=== PATIENT | male | born 1945 | race Caucasian/White ===

== ENCOUNTER 2019-05-29 00:59 | Day surgery (SDC) | payer MEDICARE, SELFPAY ==
[2019-05-26 10:53] VITALS: BMI 30.4
--- NOTE | 2019-05-28 17:06 | WPDANESEPP ---
Anes - Eval Pre Procedure Procedure: Operation Date: 05/29/19 07:30 Proposed Procedures p Screening Colonoscopy - Jose Rhodes MD Date/Time: 05/28/19 17:06 Pre Op Diagnosis: hx colon polyps Patient Data Age: 73 Gender: M Height: 6 ft 1 in Weight: 104.5 kg Allergies Allergy/AdvReac Type Severity Reaction Status Date / Time No Known Allergies Allergy Unknown Verified 05/26/19 10:31 Home Medications Medication Instructions Recorded Confirmed Type multivitamin 1 tablet PO DAILY 04/03/19 05/26/19 History pramipexole 0.25 mg tablet 0.5 mg PO .hs tablet 04/03/19 05/26/19 History trazodone 50 mg tablet 50 mg PO .hs tablet 04/03/19 05/26/19 History omeprazole 40 mg capsule,delayed 40 mg PO DAILY #90 cap 04/29/19 05/26/19 Rx release citalopram 20 mg PO DAILY 05/26/19 05/26/19 History naproxen sodium [Aleve] 220 mg PO DAILY 05/26/19 05/26/19 History Patient hx anesthesia problems: none Family hx anesthesia problems: none PMFSH Past Medical History Medical History Arthritis BCC (basal cell carcinoma of skin) Colon polyps GERD (gastroesophageal reflux disease) Obesity Trigger finger Surgical History Surgical History H/O inguinal hernia repair H/O toe surgery History of tonsillectomy Family History Family History Sibling Patient's brother is in good health Father Cerebrovascular accident, Onset Age: 77 Patient's father is Mother Patient's mother is Other Diabetes mellitus Family history of arthritis Social History Social History Smoking status: Former smoker Second hand tobacco smoke exposure: No Alcohol intake: current Exam Day of Procedure 05/28/19 17:06
[2019-05-29 06:37] VITALS: BP 132/78; PULSE 76; RESP 14; TEMP 36.5; O2SAT 97
[2019-05-29] MEDS: LACTATED RINGERS 1,000 ML 150 ML IV CONT (06:47)
--- NOTE | 2019-05-29 07:05 | P.PNAN_ITS ---
Anes - Eval Final PreProcedure Day of Procedure 05/29/19 07:05 Patient weight: obese Heart: regular rate and rhythm Lungs: clear to auscultation Airway: Mallampati scale class 1 Neurological: alert and oriented Last oral intake: >/= 8 hours ASA classification: II Emergent: no Anesthetic plan: proceed Anesthesia type and monitoring: general GIVS and standard monitoring Informed Consent: The patient's anesthetic plan and its attendant risks and maryann efits were discussed with the patient/family/POA. Questions were solicited and answers provided to the satisfaction of the patient/family/POA.
--- NOTE | 2019-05-29 07:37 | WPDGICN ---
Assessment and Plan Additional Plan This is a 73-year-old white male patient seen in evaluation at the request of AGA Gleason. Patient presents for screening colonoscopy. Patient's current weight appetite bowel movements are normal. He denies abdominal pain. He denies any blood in his bowel movements. Past medical history is significant for colon polyps. Last colonoscopy was 5 years ago. History of basal cell cancer. Family history is noncontributory. Medications at home include omeprazole. Meloxicam. Trazodone. He has no stated drug allergies. Physical exam reveals patient to be alert. Oriented x3. HEENT exam unremarkable. Lungs are clear to auscultation and percussion. Heart is without murmur or extra sounds. Digital external rectal exam is normal. Impression 1. Personal history of colon polyps. Plan is for surveillance colonoscopy. GI Consult Note Consult date/time: 05/29/19 07:37 HPI: Frank Aguilar is a 73 year old male [facility] Past Medical History Medical History Arthritis BCC (basal cell carcinoma of skin) Colon polyps GERD (gastroesophageal reflux disease) Obesity Trigger finger Surgical History Surgical History H/O inguinal hernia repair H/O toe surgery History of tonsillectomy Family History Family History Sibling Patient's brother is in good health Father Cerebrovascular accident, Onset Age: 77 Patient's father is Mother Patient's mother is Other Diabetes mellitus Family history of arthritis Social History Social History Smoking status: Former smoker Second hand tobacco smoke exposure: No Alcohol intake: current Meds Home Medications and Allergies Home Medications Medication Instructions Recorded Confirmed Type multivitamin 1 tablet PO DAILY 04/03/19 05/26/19 History pramipexole 0.25 mg tablet 0.5 mg PO .hs tablet 04/03/19 05/26/19 History trazodone 50 mg tablet 50 mg PO .hs tablet 04/03/19 05/26/19 History omeprazole 40 mg capsule,delayed 40 mg PO DAILY #90 cap 04/29/19 05/26/19 Rx release citalopram 20 mg PO DAILY 05/26/19 05/26/19 History naproxen sodium [Aleve] 220 mg PO DAILY 05/26/19 05/26/19 History Allergies Allergy/AdvReac Type Severity Reaction Status Date / Time No Known Allergies Allergy Unknown Verified 05/29/19 06:36 Vital Signs Vital Signs - 24 hr 05/29/19 06:37 Temperature 36.5 C Pulse Rate 76 Respiratory Rate 14 Blood Pressure 132/78 Pulse Oximetry 97
[2019-05-29 08:02] VITALS: BP 111/59; PULSE 64; RESP 17; O2SAT 96
[2019-05-29 08:12] VITALS: BP 120/62; PULSE 68; RESP 17; O2SAT 98
[2019-05-29 08:22] VITALS: BP 129/62; PULSE 62; RESP 15; O2SAT 99
== END 2019-05-29 08:37 | disposition home or self-care (01) ==
PROVIDERS: PCP Internal Medicine; Visit Provider Internal Medicine Gastroenterology
PROC: 0DJD8ZZ Inspection of Lower Intestinal Tract, Via Natural or Artificial Opening Endoscopic (ICD-10-PCS; CPT 45378; principal; 2019-05-29 07:30)
DX: Z12.11 Encounter for screening for malignant neoplasm of colon (principal); Z86.010 Personal history of colon polyps; K21.9 Gastro-esophageal reflux disease without esophagitis; Z87.891 Personal history of nicotine dependence
CPT/HCPCS: G0105; J2001; J2704; J7120

== ENCOUNTER 2020-03-05 06:56 | Outpatient (NON) | payer MEDICARE, SELFPAY ==
[2020-03-06 13:19] LABS: SARS-CoV-2 RNA PCR Negative
== END 2020-03-05 06:57 ==
LOC: ANHCOVIDDT 06:56
PROVIDERS: PCP Physician Assistant; Visit Provider Physician Assistant
DX: Z20.828 Contact with and (suspected) exposure to other viral communicable diseases (principal)
CPT/HCPCS: 87635; C9803; U0003

== ENCOUNTER → 2021-10-04 00:19 | Outpatient (CLI) | payer BC, SELFPAY ==
[2021-10-04 16:55] LABS: SARS-CoV-2 RNA PCR Positive
== END ==
PROVIDERS: PCP Internal Medicine; Visit Provider Internal Medicine
DX: U07.1 COVID-19 (principal)
CPT/HCPCS: C9803; U0003; U0005

== ENCOUNTER → 2022-05-12 12:37 | Outpatient (CLI) | payer MEDICARE, SELFPAY ==
--- NOTE | ~2022-05-12 | CT_ITS ---
EXAMINATION: CT soft tissue neck wo/w DATE: 05/12/2022 13:06 INDICATION: Dysphagia. Sore throat. TECHNIQUE: Computed tomography (CT) of the neck was performed without and with 75 mL Omnipaque-350 in travenous contrast. Automated exposure control and iterative reconstruction technique were employed. The dose-length product was 830.24 mGy-cm. COMPARISON: None FINDINGS: There are no pathologically enlarged lymph nodes. There is mild plaque in the proximal inte rnal carotid arteries with 0% stenosis relative to normal distal artery lumen diameters. There is ant eroposterior elongation of the ocular globes. There are likely changes of ocular lens replacement rosalia geries. There is mucosal thickening in the paranasal sinuses. The pharynx and larynx are normal. Ther e is severe cervical spondylosis. IMPRESSION: 1. No specific etiology for the patient's symptoms. Reviewed, dictated and finalized at location A. DIRECTOR
[2022-05-12 12:54] LABS: Estimated Glomerular Filt Rate > 60
== END ==
PROVIDERS: PCP Physician Assistant; Visit Provider Otolaryngology
DX: R13.10 Dysphagia, unspecified (principal)
CPT/HCPCS: 70492; 71270; Q9967

== ENCOUNTER 2022-05-16 08:11 | Outpatient (CLI) | payer MEDICARE, SELFPAY ==
--- NOTE | ~2022-05-16 | NM_ITS ---
EXAMINATION: NM nick stress w perfusion DATE: 05/16/2022 10:14 INDICATION: Chest pain TECHNIQUE: Rest images were obtained following intravenous administration of 10.4 mCi Tc99m tetrofosm in (Myoview). The patient was infused intravenously with Lexiscan (Regadenoson). Then, 33.9 mCi Tc99m tetrofosmin (Myoview) was administered intravenously, and stress images were obtained. Data was natasha nstructed into short axis and horizontal and vertical long axis SPECT images. Gated SPECT images were also obtained. COMPARISON: None. FINDINGS: There is no definite reversible or fixed perfusion abnormality to suggest ischemia or infar ction. There is normal left ventricular chamber size, wall motion and ejection fraction. Left ventr icular ejection fraction measures >70%. IMPRESSION: 1. Normal myocardial perfusion at rest and during stress. 2. Left ventricular ejection fraction measuring >70%. Reviewed, dictated and finalized at location L. UTER METHODS ANALYST
--- NOTE | 2022-05-16 08:13 | EST_ITS ---
Patient Info Name: Frank Aguilar Age: 76 years : 1945 Gender: Male Ht: 73 in Wt: 225 lbs BSA: 2.31 m2 Exam Date: 05/16/2022 9:11 AM Exam Location: [facility] Stress Patient Status: Outpatient Admit Date: 05/16/2022 Staff Ordering Physician: Fredy Gleason PA-C Attending Provider: Fredy Gleason PA-C Exercise Technologist: Bel Loyola RDCS Exercise Physician: Nilo Presley DO Exam Type: CA stress nick w NM Study Info Indications R07.9 - Chest pain, unspecified A regadenoson stress test was performed. Summary 1. 1. Negative lexiscan stress test for ischemic ST changes by ECG criteria. 2. 2. Baseline hypertension. 3. 3. Nuclear scan to follow and will be reported separately. Please correlate with it. 4. 4. Patient informed of the above results. Protocol: Lexiscan Stress ECG Details Stage: REST Duration (min): 2 min : 33 sec HR (bpm): 61 SBP (mmHg): 181 DBP (mmHg): 99 Stage: REST Duration (min): 15 min : 13 sec HR (bpm): 69 SBP (mmHg): 181 DBP (mmHg): 99 Stage: STAGE 1 Duration (min): 0 min : 59 sec HR (bpm): 72 SBP (mmHg): 171 DBP (mmHg): 72 Stage: RECOVERY Duration (min): 1 min : 0 sec HR (bpm): 87 SBP (mmHg): 171 DBP (mmHg): 72 Stage: RECOVERY Duration (min): 2 min : 0 sec HR (bpm): 85 SBP (mmHg): 171 DBP (mmHg): 72 Stage: RECOVERY Duration (min): 3 min : 0 sec HR (bpm): 80 SBP (mmHg): 171 DBP (mmHg): 72 Stage: RECOVERY Duration (min): 3 min : 12 sec HR (bpm): 75 SBP (mmHg): 171 DBP (mmHg): 72 Rest HR: 69 bpm Peak HR: 89 bpm Rest Sys BP: 181 mmHg Peak Sys BP: 171 mmHg Max Pred HR: 146 bpm % Max Pred HR: 61 % Target HR: 124 bpm Max RPP: 15,219 bpm*mmHg Termination Reason: Completed protocol Cardiac Symptoms: Shortness of breath Total Time: 1 min : 0 sec Rest Sunshine BP: 99 mmHg Peak Sunshine BP: 72 mmHg Total Dose: 0.4 mg Resting ECG Sinus rhythm with first degree AV block. Stress ECG No ST changes. Arrhythmias None. Report Signatures
== END 2022-05-16 08:12 | disposition home or self-care (01) ==
PROVIDERS: PCP Physician Assistant; Visit Provider Physician Assistant
DX: R07.9 Chest pain, unspecified (principal); I10 Essential (primary) hypertension
CPT/HCPCS: 78452; 93017; A9502; J2785

== ENCOUNTER 2025-02-11 07:50 | Outpatient (CLI) | payer MEDICARE, SELFPAY ==
--- NOTE | ~2025-02-11 | XR_ITS ---
EXAMINATION: XR pelvis 1-2V, 02/11/2025 8:55 CDT HISTORY: W19.XXXA - Unspecified fall, initial encounter COMPARISON: No comparisons available. Findings: No acute fracture or malalignment. Moderate degenerative changes Soft tissues unremarkable. Impression: No acute fracture or malalignment. Reviewed, dictated and finalized at location P. Impression: No acute fracture or malalignment.
--- NOTE | ~2025-02-11 | XR_ITS ---
EXAMINATION: XR knee LT 3V, 02/11/2025 8:55 CDT HISTORY: M25.569 - Pain in unspecified knee COMPARISON: No comparisons available. Findings: No acute fracture or malalignment. 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 Impression: No acute fracture or malalignment. Reviewed, dictated and finalized at location P. Impression: No acute fracture or malalignment.
--- NOTE | ~2025-02-11 | XR_ITS ---
EXAMINATION: XR knee RT 3V, 02/11/2025 8:55 CDT HISTORY: M25.569 - Pain in unspecified knee FALL SEVERAL FT TO GROUND COMPARISON: No comparisons available. Findings: No acute fracture or malalignment. 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 Impression: No acute fracture or malalignment. Reviewed, dictated and finalized at location P. Impression: No acute fracture or malalignment.
--- OUTSIDE RECORDS SUMMARY | 2025-02-11 07:57 | XMS_ITS | Clinical Summary ---
Author Organization [facility] [employer] Address [address] [place] [address] Care Team Providers Care Ecotherapist Name Role Phone Fredy Gleason PA-C Primary Care Provide r Source Comments [facility] [employer],non-owned Affiliates and Associated Physician Practices is amultiple site organization consisting of ambulatory clinics and hospital sitesin [place], [place], [place] and [place]. This disclosure is being madepursuant to the Care Everywhere program and may not contain all information available regarding this patient. Last updated 18.[facility] [employer] Allergies Active Allergy Reactions Criticality Noted Date Comments Seasonal Other Low 09/07/2016 Nose running Medications * Be aware that medications may not be up to date on this document. Alwaysverify current medications with the patient. omeprazole (PRILOSEC) 40 MG capsule Take 1 (one) capsule by mouth daily before breakfast 1 7 Active citalopram (CELEXA) 20 MG tablet Take 0.5 (one-half) tablet by mouth at bedtime 2 7 Active fluticasone propionate (FLONASE) 50 MCG/ACT nasal spray [place] 1 (one) spray into each nostril once daily 6 7 Active pramipexole (MIRAPEX) 0.25 MG tablet Take 1 (one) tablet by mouth once daily 5 Active traZODone (DESYREL) 50 MG tablet Take 1 (one) tablet by mouth Active Multiple Vitamin (MULTI VITAMIN PO) Take 1 tablet by mouth once daily Active Naproxen Sodium (ALEVE PO) Take 1 tablet by mouth once daily Active tamsulosin (Flomax) 0.4 MG capsule Take 1 (one) capsule by mouth at bedtime 2 Active omeprazole (PriLOSEC) 20 MG capsule TAKE 1 CAPSULE BY MOUTH EVERY DAY AT BEDTIME FOR 90 DAYS 3 Active fluorouracil (Efudex) 5 % creamIndication s:Actinic keratosis Apply to affected area twice daily for two weeks. 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 /) from Last 3 Months Immunizations Immunization Administration Dates Next Due INFLUENZA VACCINE 03/08/2021,01/15/2017 INFLUENZA VACCINE, HIGH-DOSE , QUADR. (FLUZONE HIGH-DOSE QUADRIVALENT; 65Y+), 0.7 ML (HD-IIV4) 05/02/2020 PNEUMOCOCCAL PPSV23 05/02/2020 Family History Medical History Relation Name Comments None Known Brother None Known Father None Known Maternal Aunt None Known Maternal Grandfather None Known Maternal Grandmother None Known Maternal Uncle None Known Mother None Known Other None Known Paternal Aunt None Known Paternal Grandfather None Known Paternal Grandmother None Known Paternal Uncle None Known Sister Allergy (Severe) Neg Hx Asthma Neg Hx CVA Neg Hx Cancer Neg Hx Cancer - Breast Neg Hx Cancer - Other Neg Hx Cancer - Skin, Melanoma Neg Hx Cancer - Skin, Non Melanoma Neg Hx Eczema Neg Hx Hemophilia Neg Hx Psoriasis Neg Hx Rashes/Skin Problems Neg Hx Relation Name Status Comments Brother Father Maternal Aunt Maternal Grandfather Maternal Grandmother Maternal Uncle Mother Other Paternal Aunt Paternal Grandfather Paternal Grandmother Paternal Uncle Sister Social History Tobacco Use Types Packs/Day Years Used Date Smoking Tobacco: Former Cigarettes Q uit: 09/07/1968 Smokeless Tobacco: Never Tobacco Cessation:Counseling Given: Not Answered Alcohol Use Standard Drinks/Week Comments Yes 0 (1 standard drink = 0.6 oz pur e alcohol) Sex and Gender Information Value Date Recorded Sex Assigned at Not on file Legal Sex Male 5:32 PM TRIM OPERATOR Gender Identity Not on file Sexual Orientation Not on file Last Filed Vital Signs Vital Sign Reading Time Taken Comments Blood Pressure 152/88 12/03/2020 12:34 PM CDT Pulse 77 12/03/2020 9:31 AM CDT Temperature - - Respiratory Rate - - Oxygen Saturation 97% 11/28/2016 9:08 AM CDT Inhaled Oxygen Concentration - - Weight 97.5 kg (215 lb) 12/03/2020 9:31 AM CDT Height 185.4 cm (6' 1) 12/03/2020 9:31 AM CDT Body Mass Index 28.37 12/03/2020 9:31 AM CDT Plan of Treatment Upcoming Encounters Date Type Department Care Team (Late st Contact Info) Description 02/23/2025 9:10 AM TRIM OPERATOR Office Visit [facility] - Dermatology [address] [place] [address], [place] [id number] Lily Phillips MD [address] [place] [address] [address] [place] [address] Health Maintenance Due Date Last Done Comments HEPATITIS C SCREENING 08/20/1965 DTAP/TDAP/TD VACCINES (1 - Tdap) 08/24/1966 ZOSTER VACCINE (1 of 2) 08/24/1997 PNEUMOCOCCAL VACCINE 50+ (2 of 2 - PCV) 05/02/2021 05/02/2020 Respiratory Syncytial Virus (RSV) Vaccine Pt: or over 60 yrs (1 - 1-dose 75+ series) 08/24/2022 DEPRESSION SCREENING 04/23/2024 MEDICARE AWV CALENDAR YEAR 2024 COVID-19 VACCINE (1 - 2023-2 5 season) 2024 INFLUENZA VACCINE (#1) 2024 1, 05/02/2020, 01/15/2017 HEPATITIS B VACCINE Aged Out No longe r eligible based on patient's age to complete this topic HIB VACCINE Aged Out No longer eligi ble based on patient's age to complete this topic HPV VACCINE Aged Out No longer eligi ble based on patient's age to complete this topic MENINGOCOCCAL (Group B) VACCINE SHARED DECISION-MAKING Aged Out No longer eligible based on patient's age to complete this topic MENINGOCOCCAL GROUPS A/C/Y/W VACCINE Aged Out No longer eligible b ased on patient's age to complete [place] [address] [place] [address] AMANDA Care Teams Ecotherapist Relationship Specialty Start Date End Date Fredy Gleason PA-C [address] [place] [address] [facility] - General 07/22/18
--- OUTSIDE RECORDS SUMMARY | 2025-02-11 07:57 | XMS_ITS | Encounter Summary ---
Author Organization [facility] Address [address] [place] [address] Care Team Providers Care Sales Solutions Representative Name Role Phone Fredy Gleason PA-C Primary Care Provide r Reason for Visit * Reason Onset Date Comments Treatment 01/26/2025 Seeking a Nurse call to discuss a Lump on neck. Encounter Details Date Type Department Care Team (Late st Contact Info) Description 01/26/2025 Telephone [facility] - Dermatology [address] [place] [address], [facility] [place] [address] Lily Phillips MD [address] [place] [address] [place] [address] Treatment (Seeking a Nurse call to discuss a Lump on neck. 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 If the lesion grows fast, let us know and we will do a spot check only appointment. Thank you. Lily Phillips MD * Telephone Encounter - Eugene Delarosa - 01/26/2025 11:25 AM CDT Called pt he stated that he has a small lesion on his neck that's raised as a sized of a dime and that is white. Painful when shirt rubs against it * Telephone Encounter - Dale Barron - 01/26/2025 10:23 AM CDT Seeking a Nurse call to discuss a Lump on neck. documented in this encounter Plan of Treatment Upcoming Encounters Date Type Department Care Team (Late st Contact Info) Description 02/23/2025 9:10 AM SCARFER Office Visit [facility] - Dermatology [address] [place] [address], [place] [address] Lily Phillips MD [address] [place] [address] [address] [place] [address] documented as of this encounter Visit Diagnoses Not on filedocumented in this encounter Care Teams Sales Solutions Representative Relationship Specialty Start Date End Date Fredy Gleason PA-C [address] [place] [address] PCP - General 07/22/18 documented as of this encounter
--- OUTSIDE RECORDS SUMMARY | 2025-02-11 07:57 | XMS_ITS | Encounter Summary ---
Author Organization [facility] Address [address] [place] [address] Care Team Providers Care Pot Filler Name Role Phone Fredy Gleason PA-C Primary Care Provide r Reason for Visit * Reason Onset Date Comments Appointment 10/09/2022 Encounter Details Date Type Department Care Team (Late st Contact Info) Description 10/09/2022 Telephone [facility] - Centralized Scheduling [address] [place] [address] Corie Demarco Appointment Social History Tobacco Use Types Packs/Day Years Used Date Smoking Tobacco: Former Cigarettes Q uit: 09/07/1968 Smokeless Tobacco: Never Alcohol Use Standard Drinks/Week Comments Yes 0 (1 standard drink = 0.6 oz pur e alcohol) Sex and Gender Information Value Date Recorded Sex Assigned at Not on file Legal Sex Male 5:32 PM SURG TECH Gender Identity Not on file Sexual Orientation Not on file COVID-19 Exposure Response Date Recorded In the last 10 days, have yo u been in contact with someone who was confirmed or suspected to have Coronavirus/COVID-19? No / Unsure 10/11/2022 1:06 PM CDT documented as of this encounter Miscellaneous Notes * Telephone Encounter - Elke Marquez - 10/09/2022 8:45 AM CDT Mr. Aguilar is needing to reschedule his appointment for Dr Demarco for pdt 3rd scalp and forehead documented in this encounter Plan of Treatment Upcoming Encounters Date Type Department Care Team (Late st Contact Info) Description 02/23/2025 9:10 AM SURG TECH Office Visit [facility] - Dermatology [facility], [place] [address] Lily Phillips MD [address] [place] [address] [address] [place] [address] documented as of this encounter Visit Diagnoses Not on filedocumented in this encounter Care Teams Pot Filler Relationship Specialty Start Date End Date Fredy Gleason PA-C [address] [place] [address] PCP - General 07/22/18 documented as of this encounter
[2025-02-11 09:43] LABS: Hemoglobin A1C 5.9 % (<5.7)
[2025-02-11 09:50] LABS: Alanine Aminotransferase 27 U/L (6-50); Albumin Level 3.9 g/dL (3.5-5.1); Alkaline Phosphatase 101 U/L (38-126); Anion Gap 5 mmol/L (4-12); Aspartate Amino Transferase 42 U/L (17-59); Bilirubin,Total 0.5 mg/dL (0.2-1.3); Blood Urea Nitrogen 24 mg/dL (9-20); Calcium 8.8 mg/dL (8.4-10.2); Carbon Dioxide 28 mmol/L (22-30); Chloride 106 mmol/L (98-107); Cholesterol 162 mg/dL (0-200); Estimated Glomerular Filt Rate > 60; Glucose 122 mg/dL (65-110); HDL Direct 38 mg/dL; Potassium 4.1 mmol/L (3.4-5.0); Sodium 139 mmol/L (137-145); Total Protein 6.6 g/dL (6.3-8.2); Triglycerides 105 mg/dL (<150)
== END 2025-02-11 07:51 | disposition home or self-care (01) ==
PROVIDERS: PCP Nurse Practitioner; Visit Provider Nurse Practitioner
DX: R73.9 Hyperglycemia, unspecified (principal); W19.XXXA Unspecified fall, initial encounter; Y92.009 Unspecified place in unspecified non-institutional (private) residence as the place of occurrence of the external cause; E78.5 Hyperlipidemia, unspecified; M25.561 Pain in right knee; M25.562 Pain in left knee
CPT/HCPCS: 36415; 72170; 73562; 80053; 80061; 83036